=== PATIENT | female | born 1935 | race Two or more races ===

== ENCOUNTER 2020-09-08 14:27 | Emergency (ER) | payer OTHER ==
[~2020-09-08] VITALS: Ht 134.6 cm; Wt 65.8 kg
[2020-09-08] MEDS ORDERED: HYDROcodone-ACET 5/325MG TAB PO ONE (15:00)
[2020-09-08 15:31] VITALS: BP 169/65
== END 2020-09-08 16:18 | disposition home or self-care (01) ==
LOC: EDBD 14:27 → ER 14:27
DX: M54.2 Cervicalgia (principal); S16.1XXA Strain of muscle, fascia and tendon at neck level, initial encounter; S40.011A Contusion of right shoulder, initial encounter; S40.021A Contusion of right upper arm, initial encounter; I10 Essential (primary) hypertension; E11.9 Type 2 diabetes mellitus without complications; E78.5 Hyperlipidemia, unspecified; V49.9XXA Car occupant (driver) (passenger) injured in unspecified traffic accident, initial encounter; Y93.89 Activity, other specified; Y92.89 Other specified places as the place of occurrence of the external cause; Y99.8 Other external cause status
CPT/HCPCS: 70450; 72125; 73030; 73060; 74176